=== PATIENT | female | born 1990 | race Caucasian/White ===

== ENCOUNTER 2021-12-22 15:12 | Emergency (ER) | payer OTHER ==
[~2021-12-22] VITALS: Ht 172.7 cm; Wt 72.6 kg
[2021-12-22 15:19] VITALS: BP 121/79
--- NOTE | 2021-12-22 15:20 | NUR ---
BIBS, stated she had a lil weed and it made her hungry for a kris[employer] kreme zara boyd, stated she believes she has a UTI
--- NOTE | 2021-12-22 15:21 | NUR ---
BS = 106
[2021-12-22] MEDS ORDERED: KETOROLAC TROMETHAMINE INJ 60 MG/2 ML VIAL IM ONE (15:30)
[2021-12-22] MEDS ORDERED: KETOROLAC TROMETHAMINE INJ 30 MG/ML VIAL ONE (15:38)
[2021-12-22] MEDS ORDERED: NAPR500T6 PO (15:46)
[2021-12-22] MEDS ORDERED: PRED20TA PO (15:46)
== END 2021-12-22 16:00 | disposition home or self-care (01) ==
LOC: ER 15:19
DX: M25.532 Pain in left wrist (principal); M06.9 Rheumatoid arthritis, unspecified; Z60.2 Problems related to living alone; Z79.899 Other long term (current) drug therapy
CPT/HCPCS: 99283; 96372; 73110; J1885